=== PATIENT | female | born 1945 | race Caucasian/White ===

== ENCOUNTER 2023-06-16 09:32 | Emergency (ER) | payer MEDICARE ==
[~2023-06-16] VITALS: Ht 157.5 cm; Wt 55.3 kg
[2023-06-16 10:49] VITALS: BP 135/77
== END 2023-06-16 10:50 | disposition home or self-care (01) ==
LOC: ED 09:32
DX: S61.412A Laceration without foreign body of left hand, initial encounter (principal); W23.0XXA Caught, crushed, jammed, or pinched between moving objects, initial encounter; I25.2 Old myocardial infarction; F17.200 Nicotine dependence, unspecified, uncomplicated; Z88.0 Allergy status to penicillin; Z88.5 Allergy status to narcotic agent; Z23 Encounter for immunization
CPT/HCPCS: 90471; 90715; 99282 25